=== PATIENT | male | born 1975 | race Caucasian/White ===

== ENCOUNTER 2017-07-19 13:27 | Emergency (ER) | payer MEDICAID ==
[~2017-07-19] VITALS: Ht 157.5 cm; Wt 75.6 kg
[~2017-07-19 13:27] MED LIST: IBUP-1542 PO; TRAM50TA2 PO
[2017-07-19 13:39] VITALS: Ht 157.5 cm; Wt 75.6 kg
[2017-07-19] MEDS ORDERED: IBUPROFEN 600 MG TAB PO ONE (16:00)
[2017-07-19 16:41] LABS: BASOPHILS % 0.4 % (0.0-2.0); EOSINOPHILS # 0.2 10^3/ul (0.0-0.5); EOSINOPHILS % 1.5 % (0.0-7.0); HEMATOCRIT 49.9 % (42.0-52.0); HEMOGLOBIN 17.4 g/dl (14.0-18.0); LYMPHOCYTES # 3.2 10^3/ul (0.8-2.9); LYMPHOCYTES % 29.4 % (15.0-51.0); MEAN CORPUSCULAR HEMOGLOBIN 30.6 pg (29.0-33.0); MEAN CORPUSCULAR HGB CONC 34.9 g/dl (32.0-37.0); MEAN CORPUSCULAR VOLUME 87.9 fl (82.0-101.0); MONOCYTE # 0.6 10^3/ul (0.3-0.9); MONOCYTES % 5.4 % (0.0-11.0); NEUTROPHIL # 6.8 10^3/ul (1.6-7.5); PLATELET COUNT 246 10^3/UL (140-415); RED BLOOD COUNT 5.68 10^6/ul (4.70-6.10); RED CELL DISTRIBUTION WIDTH 12.3 % (11.5-14.5); WHITE BLOOD COUNT 10.8 10^3/ul (4.8-10.8)
[2017-07-19 16:50] LABS: ADD UMIC YES; UR ASCORBIC ACID NEGATIVE (NEGATIVE); UR BILIRUBIN (Dip) NEGATIVE (NEGATIVE); UR BLOOD (Dip) 3+ mg/dL (NEGATIVE); UR CLARITY CLEAR (CLEAR); UR COLOR YELLOW (YELLOW); UR GLUCOSE (Dip) NEGATIVE (NEGATIVE); UR KETONES (Dip) NEGATIVE (NEGATIVE); UR LEUKOCYTE ESTERASE (Dip) NEGATIVE Leu/ul (NEGATIVE); UR NITRITE (Dip) NEGATIVE (NEGATIVE); UR RBC 11 /HPF (0-5); UR SPECIFIC GRAVITY (Dip) 1.012 (1.003-1.030); UR TOTAL PROTEIN (Dip) NEGATIVE (NEGATIVE); UR UROBILINOGEN (Dip) NEGATIVE (NEGATIVE)
[2017-07-19 17:12] LABS: ALBUMIN/GLOBULIN RATIO 1.22
[2017-07-19 17:13] LABS: ALBUMIN 4.4 g/dl (3.3-4.9); BILIRUBIN,INDIRECT 0.1 mg/dl (0-1.1); BILIRUBIN,TOTAL 0.1 mg/dl (0.2-1.3); CALCIUM 9.4 mg/dl (8.4-10.2); CREATININE 0.7 mg/dl (0.61-1.24); POTASSIUM 4.1 mmol/L (3.5-5.1)
--- NOTE | 2017-07-19 17:26 | RADRPT ---
PROCEDURE: CT Abdomen and Pelvis without contrast. CLINICAL INDICATION: Lower anterior abdominal and right lower quadrant pain times 4 days. TECHNIQUE: CT scan of the abdomen and pelvis without contrast was performed on a multidetector hig h-resolution CT scanner. The patient was scanned without intravenous contrast. Coronal and sagittal reformatted images were obtained from the axial source images. Images were reviewed on a high-resol [employer] PACS workstation. The total exam CTDI equals 8.93 mGy and the total exam DLP equals 533.78 mGy -cm. One or the following dose reduction techniques were used: -Automated exposure control. -Adjustment of the mA and/or KV according to patient's size. -Use of iterative reconstruction technique. DICOM images are available. COMPARISON: None. FINDINGS: Lower thorax: Unremarkable. GI:. There is a tiny hiatal hernia. Liver: Slight decrease in the overall hepatic attenuation suggesting diffuse steatosis. Gallbladder: Unremarkable. Pancreas: Unremarkable. Spleen: A few scattered granulomatous calcifications present. Adrenals: Unremarkable. Kidneys: No evidence of urolithiasis or obstructive uropathy. Bladder: Unremarkable. Pelvic Organs: Unremarkable. Skeleton: Normal for age. Other: Small umbilical hernia and small left inguinal hernia, both containing fat. IMPRESSION: 1. Mild decreased hepatic attenuation suggesting diffuse steatosis. 2. No evidence of urolithiasis or obstructive uropathy. 3. Minimal scattered colonic diverticulosis without evidence of acute diverticulitis. 4. Normal appearing appendix visualized. 5. Small umbilical and tiny left inguinal hernias containing fat only. 6. No mass, lymphadenopathy or evidence of an acute inflammatory process. RPTAT: [facility] Physician Rabia Date Time Electronically viewed and signed by Physician Rabia on 07/19/2017 17:26 /
[2017-07-19] MEDS ORDERED: IBUP-1542 PO (17:56)
[2017-07-19] MEDS ORDERED: TRAM50TA2 PO (17:56)
--- NOTE | 2017-07-19 18:01 | ERD ---
ER Documentation Chief Complaint Chief Complaint PT with RLQ AP X 4 days, denies any other symptoms. HPI This 41-year-old male complains of pain in the periumbilical area somewhat in the right lower quadrant for last 4 days. Started after lifting. He has had a bump in his bellybutton for several years. He denies any fevers although the abdomen he says feels warm. Denies any vomiting, or changes in bowel habits. He denies any urinary complaints. ROS All systems reviewed and are negative except as per history of present illness. Medications Home Meds Active Scripts Ibuprofen* (Motrin*) 600 Mg Tab, 600 MG PO Q6, #30 TAB Prov:GENEVA VALLECILLO MD 07/19/17 Tramadol HCl (Tramadol HCl) 50 Mg Tablet, 50 MG PO Q4 Y for PAIN, #20 TAB Prov:GENEVA VALLECILLO MD 07/19/17 Tramadol HCl (Tramadol HCl) 50 Mg Tab, 50 MG PO Q4 Y for PAIN, #20 TAB Prov:GENEVA VALLECILLO MD 04/09/15 Ibuprofen* (Motrin*) 600 Mg Tab, 600 MG PO Q6, #20 TAB Prov:GENEVA VALLECILLO MD 04/09/15 Allergies Allergies: Coded Allergies: No Known Allergy (Unverified , 04/09/15) PMhx/Soc History of Surgery: No Anesthesia Reaction: No Hx Neurological Disorder: No Hx Respiratory Disorders: No Hx Cardiac Disorders: No Hx Psychiatric Problems: No Hx Miscellaneous Medical Probl: No Hx Alcohol Use: No Hx Substance Use: No Hx Tobacco Use: No Smoking Status: Never smoker Physical Exam Vitals Vital Signs Date Time Temp Pulse Resp B/P Pulse Ox O2 Delivery O2 Flow Rate FiO2 07/19/17 13:39 97.8 92 18 125/79 97 Physical Exam Const: [] Alert, [id number]. Head: Atraumatic Eyes: Normal Conjunctiva ENT: Normal External Ears, Nose and Mouth. Neck: Full range of motion..~ No meningismus. Resp: Clear to auscultation bilaterally Cardio: Regular rate and rhythm, no murmurs Abd: Soft, mild tenderness around the approximately 1.5 cm umbilical hernia. No erythema or warmth. No exquisite tenderness at McBurney's point. No rebound. non distended. Normal bowel sounds Skin: No petechiae or rashes Back: No midline or flank tenderness Ext: No cyanosis, or edema Neur: Awake and alert Psych: Normal Mood and Affect Result Diagram: 07/19/17 1614 07/19/17 1614 Results 24 hrs Laboratory Tests Test 07/19/17 16:10 07/19/17 16:14 Urine Color YELLOW Urine Clarity CLEAR Urine pH 5.0 Urine Specific [place] 1.012 Urine Ketones NEGATIVEmg/dL Urine Nitrite NEGATIVEmg/dL Urine Bilirubin NEGATIVEmg/dL Urine Urobilinogen NEGATIVEmg/dL Urine Leukocyte Esterase NEGATIVELeu/ul Urine Microscopic RBC 11/HPF Urine Microscopic WBC 1/HPF Urine Hemoglobin 3+mg/dL Urine Glucose NEGATIVEmg/dL Urine Total Protein NEGATIVEmg/dl White Blood Count 10.810^3/ul Red Blood Count 5.6810^6/ul Hemoglobin 17.4g/dl Hematocrit 49.9% Mean Corpuscular Volume 87.9fl Mean Corpuscular Hemoglobin 30.6pg Mean Corpuscular Hemoglobin Concent 34.9g/dl Red Cell Distribution Width 12.3% Platelet Count 15908^3/UL Mean Platelet Volume 9.0fl Neutrophils % 63.0% Lymphocytes % 29.4% Monocytes % 5.4% Eosinophils % 1.5% Basophils % 0.4% Nucleated Red Blood Cells % 0.0/100WBC Neutrophils # 6.810^3/ul Lymphocytes # 3.210^3/ul Monocytes # 0.610^3/ul Eosinophils # 0.210^3/ul Basophils # 0.010^3/ul Nucleated Red Blood Cells # 0.010^3/ul Sodium Level 138mmol/L Potassium Level 4.1mmol/L Chloride Level 100mmol/L Carbon Dioxide Level 26mmol/L Anion Gap 16 Blood Urea Nitrogen 10mg/dl Creatinine 0.70mg/dl Glucose Level 87mg/dl Calcium Level 9.4mg/dl Total Bilirubin 0.1mg/dl Direct Bilirubin 0.00mg/dl Indirect Bilirubin 0.1mg/dl Aspartate Amino Transf (AST/SGOT) 30IU/L Alanine Aminotransferase (ALT/SGPT) 52IU/L Alkaline Phosphatase 115IU/L Total Protein 8.0g/dl Albumin 4.4g/dl Globulin 3.60g/dl Albumin/Globulin Ratio 1.22 Lipase 34U/L Current Medications Medications (Trade) Dose Ordered Sig/Eric Route PRN Reason Start Time Stop Time Status Last Admin Dose Admin Ibuprofen (Motrin) 600 mg ONCE ONCE PO 07/19/17 16:00 07/19/17 16:01 DC 07/19/17 16:14 Procedures/MDM Patient presents with a four-day history of abdominal pain. Appears to be mostly localized around an umbilical hernia which does not have the appearance of strangulation. I was able to reduce it with some effort although not completely. Patient does have mild tenderness in the right side but minimal. Given possible right lower quadrant pain CBC was performed which is normal. CMP and lipase NORMAL. URINE SHOWS NO ACUTE ABNORMALITIES. CT ABDOMEN AND PELVIS SHOWS SMALL UMBILICAL HERNIA WITHOUT EVIDENCE OF STRANGULATION. THE APPENDIX IS NORMAL. THERE IS NO ADDITIONAL ACUTE FINDINGS. PATIENT WAS GIVEN IBUPROFEN FOR PAIN. PATIENT PRESENTS WITH SIGNS OF A WORSENING UMBILICAL HERNIA WITHOUT EVIDENCE OF STRANGULATION. HE WILL BE REFERRED TO SURGEON AND DISCHARGED HOME WITH RETURN PRECAUTIONS FOR FEVERS, VOMITING, WORSENING PAIN, NEW WORSENING SYMPTOMS DIRECTED AND AFTERCARE INSTRUCTIONS. The patient was stable with no new complaints during the ER course. Clinically, there is no current evidence to suggest meningitis, sepsis, acute abdomen, pneumonia, acute coronary syndrome, pulmonary embolism, or any other emergent condition appearing to require further evaluation or hospitalization. The patient should certainly return for any new or worsening symptoms per the aftercare instructions. They should otherwise follow-up with her primary care doctor for reevaluation this week. Departure Diagnosis: Primary Impression: Hernia Additional Impression: Abdominal pain Abdominal location: periumbilical Qualified Code: R10.33 - Periumbilical abdominal pain Condition: Stable Patient Instructions: Abdominal Pain, Hernia (Inguinal, Ventral, Umbilical) Referrals: KONSTANTIN SIMS MD, THOMAS MD Additional Instructions: Examines normal hoy. probabalamente de hernia. Cheque otro vez con elias doctor primario en el proximo ackerman or regresa para mas o nueva simptomas. Va al elias doctor/ specialista para mas evaluacon en el proximo semana. posiblemente necesita autorizado de elias doctor primario para specialista. Regresa para fiebre , o mas o nueva simptomas. GENEVA VALLECILLO MD Jul 19, 2017 18:01
== END 2017-07-19 18:38 | disposition home or self-care (01) ==
LOC: FTE 13:27
DX: K42.9 Umbilical hernia without obstruction or gangrene (principal)
CPT/HCPCS: 36415; 74176; 80053; 81001; 83690; 85025; Z7502; Z7610

== ENCOUNTER 2018-05-02 04:56 | Inpatient (IN) | END 2018-05-03 15:30 | disposition home or self-care (01) | DRG 354 ==

== ENCOUNTER 2019-04-12 17:32 | Emergency (ER) | payer MEDICAID ==
[~2019-04-12] VITALS: Ht 162.6 cm; Wt 74.1 kg
[~2019-04-12 17:32] MED LIST changes: +ACET325T40 PO; +DOCU-216 PO
[2019-04-12 18:21] VITALS: BP 118/76; PULSE 80; RESP 20; Ht 162.6 cm; Wt 74.1 kg
[2019-04-12] MEDS ORDERED: IBUPROFEN 600 MG TAB PO ONE (19:30)
[2019-04-12] MEDS ORDERED: DIPHTH/TET/ACEL PERTUSS (ADULT) 0.5 ML VIAL IM* ONE (19:30)
== END 2019-04-12 19:54 | disposition home or self-care (01) ==
LOC: FTE 17:32
DX: S91.201A Unspecified open wound of right great toe with damage to nail, initial encounter (principal); F17.210 Nicotine dependence, cigarettes, uncomplicated; W22.8XXA Striking against or struck by other objects, initial encounter; Y92.9 Unspecified place or not applicable; Z23 Encounter for immunization
CPT/HCPCS: 73660; 90471; 90715; Z7502; Z7610